=== PATIENT | female | born 1980 | race Caucasian/White ===

== ENCOUNTER 2017-11-23 18:34 | Emergency (ER) | payer BC ==
[2017-11-23 18:41] VITALS: PULSE 90
[2017-11-23 19:34] LABS: Appearance,Urine Cloudy (Clear); Bacteria,Urine Many /hpf; Bilirubin,Urine Negative (Negative); Blood,Urine Negative (Negative); Color,Urine Light Yellow; Glucose,Urine (UA) Negative (Negative); Ketones,Urine Negative (Negative); Leukocyte Esterase,Urine Moderate (Negative); Mucus,Urine Rare /hpf; Nitrite,Urine Negative (Negative); Protein,Urine Negative (Negative); RBC,Urine 4 /hpf (0-5); Specific Gravity,Urine 1.006 (1.001-1.035); Squamous Epithelial Cell,Urine 2 /hpf (0-4); Urobilinogen,Urine <2.0 mg/dL (<2.0); WBC,Urine 9 /hpf (0-5)
--- NOTE | 2017-11-23 19:34 | XR ---
EXAMINATION TYPE: XR chest 2V DATE OF EXAM: 11/23/2017 COMPARISON: None HISTORY: 37-year-old female with cough and congestion and pain TECHNIQUE: PA and lateral views FINDINGS: The cardiomediastinal silhouette, aorta, and pulmonary vasculature are within normal limits. Mild per ibronchial cuffing. No consolidation or pleural effusion. IMPRESSION: Mild peribronchial cuffing could reflect bronchitis or asthma. Otherwise, no cardiopulmonary process.
--- NOTE | 2017-11-23 20:03 | ED ---
Fever HPI - General Chief Complaint: Fever Stated Complaint: flu like symptoms 15-16 weeks Time Seen by Provider: 11/23/17 18:46 Source: patient, RN notes reviewed, old records reviewed Mode of arrival: ambulatory Limitations: no limitations - History of Present Illness Initial Comments: Pt is a 37 year old female presents with fever, cough, congestion, sore throat and body aches for one day. She is currently 21 weeks . She states she has no abodminal cramping or vaginal bleeding. She states she sees OBGYN in [place]. She reports that her son's school has outbreak of influenza. HE has had similiar symptoms. No nausea, vomiting, abdominal pain. She reports it is causing chest pain when she coughs. No productive sputum. - Related Data Home Medications Medication Instructions Recorded Confirmed Qpq-[id number] Acid 1 cap PO HS 11/23/17 11/23/17 [-U Capsule (formulary)] Previous Rx's Medication Instructions Recorded Nitrofurantoin Monohyd/M-Cryst 100 mg PO Q12HR #14 cap 11/23/17 [Macrobid] Oseltamivir [Tamiflu] 75 mg PO Q12HR #10 cap 11/23/17 Allergies Allergy/AdvReac Type Severity Reaction Status Date / Time amoxicillin Allergy Anaphylaxis Verified 11/23/17 19:18 latex Allergy Rash/Hives Verified 11/23/17 19:18 Penicillins Allergy Anaphylaxis Verified 11/23/17 19:18 promethazine [From Phenergan] Allergy Dyspnea Verified 11/23/17 19:18 SYNTHETIC PAIN MEDS Allergy Anaphylaxis Uncoded 11/23/17 19:18 Review of Systems ROS Statement: Those systems with pertinent positive or pertinent negative responses have been documented in the HPI. ROS Other: All systems not noted in ROS Statement are negative. Past Medical History Past Medical History: Pneumonia History of Any Multi-Drug Resistant Organisms: None Reported Past Surgical History: Orthopedic Surgery Additional Past Surgical History / Comment(s): rt knee ,lasik Past Psychological History: No Psychological Hx Reported Smoking Status: Never smoker Past Alcohol Use History: None Reported Past Drug Use History: None Reported General Exam - General Exam Comments Initial Comments: This is 37 year old female, no distress. Limitations: no limitations General appearance: alert, in no apparent distress Head exam: Present: atraumatic, normocephalic, normal inspection Eye exam: Present: normal appearance, PERRL, EOMI. Absent: scleral icterus, conjunctival injection, periorbital swelling ENT exam: Present: normal exam. Absent: normal oropharynx (erythema) Neck exam: Present: normal inspection. Absent: tenderness, meningismus, lymphadenopathy Respiratory exam: Present: normal lung sounds bilaterally, other (dry cough). Absent: respiratory distress, wheezes, rales, rhonchi, stridor Cardiovascular Exam: Present: regular rate, normal rhythm, normal heart sounds. Absent: systolic murmur, diastolic murmur, rubs, gallop, clicks GI/Abdominal exam: Present: soft, normal bowel sounds. Absent: distended, tenderness, guarding, rebound, rigid Neurological exam: Present: alert, oriented X3, CN II-XII intact Psychiatric exam: Present: normal affect, normal mood Skin exam: Present: warm, dry, intact, normal color. Absent: rash Course Vital Signs 11/23/17 11/23/17 18:37 20:16 Temperature 98.9 F 97.8 F Pulse Rate 90 90 Respiratory 22 18 Rate Blood Pressure 109/54 134/75 O2 Sat by Pulse 98 97 Oximetry Medical Decision Making - Medical Decision Making Pt is a 37 year old female presents with fever, cough, congestion, sore throat and body aches for one day. She is currently 21 weeks . She states she has no abodminal cramping or vaginal bleeding. Patient lungs are clear, no wheezing. PAtient is positive for influenza A. EKG and CXR reviewed and normal. Patient does have bacteria in urine. Discussed treating bacteruria in . Patient placed on tamiflu and macrobid. REturn parameters discused. - Lab Data Lab Results 11/23/17 11/23/17 Range/Units 19:00 19:01 Urine Color Light Yellow Urine Appearance Cloudy H (Clear) Urine pH 6.0 (5.0-8.0) Ur Specific Olla 1.006 (1.001-1.035) Urine Protein Negative (Negative) Urine Glucose (UA) Negative (Negative) Urine Ketones Negative (Negative) Urine Blood Negative (Negative) Urine Nitrite Negative (Negative) Urine Bilirubin Negative (Negative) Urine Urobilinogen <2.0 (<2.0) mg/dL Ur Leukocyte Esterase Moderate H (Negative) Urine RBC 4 (0-5) /hpf Urine WBC 9 H (0-5) /hpf Ur Squamous Epith Cells 2 (0-4) /hpf Urine Bacteria Many H (None) /hpf Urine Mucus Rare H (None) /hpf Influenza Type A RNA Detected H (Not Detectd) Influenza Type B (PCR) Not Detected (Not Detectd) Interpretation: no acute changes, normal EKG - Radiology Data Radiology results: report reviewed CXR was reviewed adn within normal lmitis. Disposition Clinical Impression: Influenza A, Bacteriuria during Disposition: HOME SELF-CARE Condition: Good Instructions: Influenza (ED), Urinary Tract Infection in (ED) Additional Instructions: is taking medications as prescribed. Follow-up with primary care physician and [facility]. Return to the emergency department if any alarming signs or symptoms occur. Prescriptions: Nitrofurantoin Monohyd/M-Cryst [Macrobid] 100 mg PO Q12HR #14 cap Oseltamivir [Tamiflu] 75 mg PO Q12HR #10 cap Referrals: None,Stated [Primary Care Provider] - 1-2 days Time of Disposition: 20:01
[2017-11-23 20:17] VITALS: BP 134/75; RESP 18; TEMP 97.8
== END 2017-11-23 20:17 | disposition home or self-care (01) ==
LOC: EC 18:34
DX: O99.512 Diseases of the respiratory system complicating pregnancy, second trimester (principal); J10.1 Influenza due to other identified influenza virus with other respiratory manifestations; O99.89 Other specified diseases and conditions complicating pregnancy, childbirth and the puerperium; R82.71 Bacteriuria; Z87.01 Personal history of pneumonia (recurrent); Z88.0 Allergy status to penicillin; Z91.040 Latex allergy status; Z88.8 Allergy status to other drugs, medicaments and biological substances; Z3A.21 21 weeks gestation of pregnancy; Z79.899 Other long term (current) drug therapy
CPT/HCPCS: 71046; 81001; 87502; 93005; 99284

== ENCOUNTER 2018-04-21 22:15 | Outpatient (CLI) | payer BC | END 2018-04-21 23:22 | disposition home or self-care (01) | LOC: FBPOP 22:15 | PROVIDERS: ATTEND Obstetrics & Gynecology | DX: O47.03 False labor before 37 completed weeks of gestation, third trimester (principal); Z3A.00 Weeks of gestation of pregnancy not specified | CPT/HCPCS: 59025; 84112; 99213 ==

== ENCOUNTER 2018-05-04 20:32 | Outpatient (CLI) | payer BC ==
[2018-05-04 22:22] VITALS: BP 91/53; PULSE 74; RESP 18; TEMP 97.3
--- NOTE | 2018-06-07 12:24 | P.MSEPDOC ---
Presenting Problems - Arrival Data Date of Arrival on Unit: 05/04/18 Time of Arrival on Unit: 20:30 Mode of Transport: Ambulatory - Complaint OB-Reason for Admission/Chief Complaint: Possible Onset of Labor Medical History - Information : 3 Para: 2 Term: 1 : 1 Abortions: Spontaneous or Elective: 0 Number of Living Children: 2 - Gestational Age Gestational Age by TARIQ (wks/days): 37 Weeks and 6 Days - History Complications: GBS+ Review of Systems - Review of Systems Constitutional: No problems Breast: No problems ENT: No problems Cardiovascular: No problems Respiratory: No problems Gastrointestinal: No problems Genitourinary: No problems Musculoskeletal: No problems Neurological: No problems Skin: No problems Vital Signs - Temperature Temperature: 97.3 F Temperature Source: Temporal Artery Scan - Pulse Right Brachial Pulse Rate: 74 - Respirations Respiratory Rate: 18 Oxygen Delivery Method: Room Air - Blood Pressure Right Arm Blood Pressure: 91/53 Blood Pressure Mean: 65 Medical Screen Scoring (Pre) - Cervical Exam Dilation: 4-7 cm = 2 Effacement: More than 50% = 2 Membranes: Intact - Uterine Contractions Frequency: > 5 minutes apart = 1 Duration: N/A Intensity: N/A - Maternal Vital Signs Maternal Temperature: N/A Maternal Blood Pressure: N/A Signs of Preeclampsia: N/A Maternal Respirations: N/A - Pain Assessment Pain Location and Character: Perineal Pain Scale Used: Numeric (1 - 10) Pain Intensity: 4 Pain Management Goal: 2 Pain Description: *Acute, Pressure Pain Radiation Location: none Pain Frequency: Intermittent Pain Behavior: Vocalization - Maternal Trauma Maternal Trauma: N/A - Assessment Heart Rate - NICHD Category: Category I (Normal) = 0 NST: Reactive Position: N/A - Total Score Total Score (Pre): 5 - Level of Risk Level of Risk: Low (0-5) Physician Notification (Pre) - Physician Notified Physician Notified Date: 05/04/18 Physician Notified Time: 22:00 Physician/Practitioner Notifed:: Dr. Obrien Spoke With: Dr. Obrien New Order Received: Yes - Notification Comment Comment: discharge pt home, transfer care to md here in [place] Disposition - Disposition OB Disposition: Discharge to home, Written follow up instructions reviewed Discharge Date: 05/04/18 Discharge Time: 22:10 I agree with the RN Medical Screening Exam: Yes Risk & Benefit of care provided described in d/c instruction: Yes Diagnosis: FALSE LABOR AT OR AFTER 37 COMPLETED WEEKS OF GESTATION
== END 2018-05-04 22:10 | disposition home or self-care (01) ==
LOC: FBPOP 20:32
PROVIDERS: ATTEND Obstetrics & Gynecology
DX: O47.1 False labor at or after 37 completed weeks of gestation (principal); Z3A.37 37 weeks gestation of pregnancy
CPT/HCPCS: 59025; 84112; 99213